=== PATIENT | female | born 1960 | race Caucasian/White ===

== ENCOUNTER → 2017-08-10 | Outpatient (CLI) | payer OTHER ==
--- NOTE | 2017-08-10 14:58 | RADRPT ---
EXAM DATE/TIME: 08/10/2017 14:25 [facility] COMPARISON: No previous studies available for comparison. INDICATIONS : Pain in her right ankle, hurt 3 1/2 months ago. MEDICAL HISTORY : None. SURGICAL HISTORY : None. ENCOUNTER: Initial ACUITY: 3 months PAIN SCORE: 5/10 LOCATION: Right ankle FINDINGS: Three view exam was performed of the right ankle. The bony structures are in normal alignment. No e vidence of fracture, dislocation, or soft tissue swelling. The ankle mortise is intact. No radiopaq ue foreign bodies are seen. Bony mineralization is normal. CONCLUSION: Negative examination. Rodriguez Jurado MD on August 10, 2017 at 14:55 Board Certified Radiologist. This report was verified electronically.
--- NOTE | 2017-08-10 14:58 | RADRPT ---
EXAM DATE/TIME: 08/10/2017 14:27 [facility] COMPARISON: No previous studies available for comparison. INDICATIONS : Hurt right foot 3 1/2 months ago at home. MEDICAL HISTORY : None. SURGICAL HISTORY : None. ENCOUNTER: Initial ACUITY: 3 months PAIN SCORE: 5/10 LOCATION: Right foot FINDINGS: Three view examination of the right foot demonstrates no soft tissue swelling, dislocation, or fractu re. The tarsal bones appear intact. The interphalangeal and metatarsophalangeal joints are intact. The calcaneus is intact. Bony mineralization is normal. CONCLUSION: Negative examination. Rodriguez Jurado MD on August 10, 2017 at 14:55 Board Certified Radiologist. This report was verified electronically.
== END ==
LOC: HRAD 14:09
PROVIDERS: ATTEND Family Medicine
DX: M79.671 Pain in right foot (principal)
CPT/HCPCS: 73610; 73630